=== PATIENT | female | born 1955 | race Caucasian/White ===

== ENCOUNTER 2017-11-17 16:10 | Emergency (ER) | payer MEDICAID ==
[~2017-11-17] VITALS: Ht 162.6 cm; Wt 68.0 kg
[2017-11-17 16:30] VITALS: BP_SYST 153
[2017-11-17 17:39] LABS: BASOPHILS % (AUTO) 0.7 % (0.0-2.0); EOSINOPHILS # (AUTO) 0.1 K/uL (0.0-0.4); EOSINOPHILS % (AUTO) 1.6 % (0.0-4.0); HEMATOCRIT 44.9 % (36-48); HEMOGLOBIN 15.1 g/dL (12.0-16.0); LYMPHOCYTES # (AUTO) 1.5 K/uL (1.0-5.5); LYMPHOCYTES % (AUTO) 21.7 % (20.5-51.5); MEAN CORPUSCULAR HEMOGLOBIN 32 pg (27-31); MEAN CORPUSCULAR HGB CONC 34 % (32-36); MEAN CORPUSCULAR VOLUME 95 fL (79.0-98.0); MONOCYTES # (AUTO) 0.6 K/uL (0.0-1.0); MONOCYTES % (AUTO) 9.3 % (1.7-9.3); NEUTROPHILS # (AUTO) 4.6 K/uL (1.8-7.7); NEUTROPHILS % (AUTO) 66.7 % (40.0-70.0); PLATELET COUNT (AUTO) 349 K/uL (130-430); RED BLOOD CELL COUNT(AUTO) 4.71 MIL/uL (4.2-6.2); RED CELL DISTRIBUTION WIDTH 12.2 % (9.0-15.0); WHITE BLOOD COUNT (AUTO) 6.8 K/uL (4.8-10.8)
[2017-11-17 17:51] LABS: CREATININE 0.69 mg/dL (0.55-1.30); POTASSIUM 3.5 mmol/L (3.5-5.1)
[2017-11-17 17:54] LABS: PROTHROMBIN TIME 9.9 SECS (9.5-12.5)
[2017-11-17 17:56] LABS: ALBUMIN 4.2 g/dL (3.4-4.8); TOTAL BILIRUBIN 0.4 mg/dL (0.0-1.0)
[2017-11-17 19:00] VITALS: BP_SYST 148
== END 2017-11-17 19:00 | disposition home or self-care (01) ==
LOC: SED 16:10
DX: M79.604 Pain in right leg (principal); E03.9 Hypothyroidism, unspecified
CPT/HCPCS: 36415; 73590-TC; 80053; 85025; 85610-TC; 85730-TC; 93971; 99285

== ENCOUNTER 2019-07-20 12:42 | Emergency (ER) | payer OTHER, MEDICAID ==
[~2019-07-20] VITALS: Ht 162.6 cm; Wt 64.4 kg
[2019-07-20 13:05] VITALS: BP_SYST 155
[2019-07-20 15:50] VITALS: BP_SYST 155
== END 2019-07-20 15:50 | disposition home or self-care (01) ==
LOC: SED 12:42
DX: M79.662 Pain in left lower leg (principal); K21.9 Gastro-esophageal reflux disease without esophagitis; E03.9 Hypothyroidism, unspecified; F41.9 Anxiety disorder, unspecified; Z88.2 Allergy status to sulfonamides
CPT/HCPCS: 73590-TC; 99283